=== PATIENT | male | born 1945 | race African-American/Black ===

== ENCOUNTER → 2016-05-08 | Outpatient (CLI) | payer OTHER, MEDICARE ==
[~2016-05-08] VITALS: Ht 180.3 cm; Wt 96.6 kg
[~2016-05-08] MED LIST: AMARYL2 MG PO; ASPIR 8181 MG PO; CLONIDINE0.1 PO; COD LIVER OIL1 EAC4 PO; COQ-10100 MG PO; HYDROCODONE-AP1 EAC6 PO; JANUVIA100 MG PO; METFORMIN HCL500 MG PO; METOPROLOL SUCC50 MG PO; MOBIC7.5 MG PO; QUINAPRIL-HCTZ1 EAC2 PO; ZOCOR40 MG PO
--- NOTE | ~2016-05-08 | HPC ---
[facility] [place] [address] PAIN MANAGEMENT CONSULTATION Name: LUC TRUJILLO Room #: REG Emily Homero.#: [id number] Admission: 05/08/16 Attend Phys: Kalpesh Dickey MD Discharge: Date of : 41 Report #: [id number] THIS REPORT FOR: //name// CC: Kalpesh Mary MD PRIMARY CARE PHYSICIAN: Ozzie Mary M.D. CHIEF COMPLAINT: Right hip pain down into the leg with weakness, numbness and tingling. HISTORY OF PRESENT ILLNESS: The patient is a 70-year-old gentleman who has been referred to the pain clinic for evaluation of pain and discomfort, which has been radiating down his right leg with numbness, tingling and weakness. He states the pain has been problematic for about the last 3 days. He denies any similar pain in the past. He denies any trauma. He denies any bowel or bladder dysfunction. He describes the pain as a 7/10. He notes that pain is worse when he is sitting, standing, walking or doing things, which involve bending and involvement of his low back area. He has tried all nonsteroidal anti-inflammatory medications with no significant benefit. ALLERGIES: No known drug allergies. MEDICATIONS: Januvia 100 mg daily, quinapril/hydrochlorothiazide 50 mg, metoprolol 50 mg b.i.d., clonidine 0.1 mg b.i.d., Zocor 40 mg, Amaryl 2 mg daily, metformin 500 mg b.i.d., cod liver oil, COQ10 100 mg, aspirin 81 mg. PAST MEDICAL HISTORY: Diabetes, hypertension. PAST SURGICAL HISTORY: None. SOCIAL HISTORY: He is retired, has not worked for the last 2 years. About 2 drinks per week. REVIEW OF SYSTEMS: Questionnaire in the chart indicates good health, diabetes; otherwise unremarkable. LABORATORY DATA: No laboratory values available at the time of our interview. PHYSICAL EXAMINATION: Blood pressure 161/109, pulse 83, respiratory rate 20, room air saturation 100%. Height 5 feet 11 inches, weight 96 kilos. BMI 29, patient has pain and discomfort in the low back area. Has possible right straight leg raise. The patient sits leaning to the left side with his right leg extended. He continues to switch and change positions numerous times throughout the interview. He complains of pain and discomfort radiating down the right buttocks, posterior thigh and down into the calf. He notes numbness, [facility] [address] [place] [address] PAIN MANAGEMENT CONSULTATION Name: LUC TRUJILLO Room #: REG [facility]#: [id number] Admission: 05/08/16 Attend Phys: Kalpesh Dickey MD Discharge: Date of : 41 Report #: [id number] weakness, tenderness and walks with an antalgic gait. IMPRESSION: 1. Lumbar radiculopathy with numbness, weakness tenderness in the L5-S1 nerve root distribution. 2. Essential hypertension. 3. Diabetes. RECOMMENDATIONS: We discussed treatment options with the patient. Risks and benefits of an epidural steroid injection were explained. A model was used to show the patient the area of pathology. Risks and benefits of an epidural steroid injection were discussed. Possible complications were again reviewed. The patient elects to proceed. PROCEDURE NOTE: The patient was placed in the prone position. Fluoroscopy was used to identify the L5, S1 nerve area. This area had been sterilely prepped with Betadine and infiltrated with 0.25% bupivacaine. Total of 80 mg Depo-Medrol, 40 mg triamcinolone and 2 mL of 0.25% bupivacaine was injected. The patient tolerated the procedure well. A total of 8.1 seconds of fluoroscopy time was used. The patient's pain decreased from 7 to 2 at the time of discharge. He will follow up in the future as needed. A script for Mobic 7.5 mg 1 p.o. every day and hydrocodone 5/325 one p.o. q. 6 hours p.r.n. pain has been dispensed. The patient will call us if he has any problem with his medications. We would like to thank you for letting us participate in his care. We hope he continues to improve. <ELECTRONICALLY SIGNED> By: Kalpesh Dickey MD 05/11/16 0821 [id number] 11 Kalpesh Dickey MD /monica
[2016-05-08 11:34] VITALS: BP 161/109
== END ==
LOC: PAIN 10:44
DX: M54.16 Radiculopathy, lumbar region (principal); I10 Essential (primary) hypertension; E11.9 Type 2 diabetes mellitus without complications

== ENCOUNTER → 2016-05-22 | Outpatient (CLI) | payer OTHER, MEDICARE ==
[~2016-05-22] VITALS: Ht 180.3 cm; Wt 95.4 kg
--- NOTE | ~2016-05-22 | HPC ---
[facility] [address] [address] PAIN MANAGEMENT CONSULTATION Name: LUC TRUJILLO Room #: REG Emily Brendon#: [id number] Admission: 05/22/16 Attend Phys: Kalpesh Dickey MD Discharge: Date of : 41 Report #: [id number] THIS REPORT FOR: //name// CC: Kalpesh Mary MD DATE OF SERVICE: 05/22/2016 FOLLOWUP COMPLAINT: Here for followup after the injection. FOLLOWUP HISTORY: The patient is a very pleasant 70-year-old who has been seen in the pain clinic because of lumbar radiculopathy. He was experiencing pain, which he rated as a 7/10 at the last visit. He was experiencing some pain down into his right leg with numbness, weakness, and tingling. He underwent the epidural steroid injection. He noticed that his pain has improved. He rates it as a 5/10 today. Overall, it is much better. He feels about 80% better than it was. At this juncture, he feels that it is "good enough." He will continue with a conservative approach. He will consider return in the future if his pain is worse, but declines an injection today. PHYSICAL EXAMINATION: Blood pressure is 157/95, pulse 61, respiratory rate 20, room air saturations 100. The patient rates his pain as a 5/10. Pain has decreased, radiating down into his right buttock and left calf. He is able to ambulate a whole lot better. He has had no problem with bowel or bladder dysfunction. IMPRESSION: 1. Improved lumbar radicular pain. He has had no problem with Meloxicam 7.5 mg. We will continue with this and give him 2 more additional scripts. He will stop this medication if he notes any GI pain or discomfort. He will continue with hydrocodone 5/325 one p.o. p.r.n. as needed. He will call us if he has any problems or escalation of his pain and return to the pain clinic for an additional injection if needed. 2. Lumbar radiculopathy with improvement in numbness, improvement in weakness in the L5-S1 distribution on the right leg. 3. Essential hypertension. 4. Diabetes. The patient has had no significant changes in his blood sugars after the injections. RECOMMENDATION: The patient will return to the pain clinic as [place] [address] PAIN MANAGEMENT CONSULTATION Name: LUC TRUJILLO Room #: REG EMILE LaMichaelAshelyMichael#: [id number] Admission: 05/22/16 Attend Phys: Kalpesh Dickey MD Discharge: Date of : 41 Report #: [id number] We would like to thank you for letting us participate in his care. We hope he continues to improve. <ELECTRONICALLY SIGNED> By: Kalpesh Dickey MD 06/12/16 1018 [id number] 1322 MD madiha Conroy
[2016-05-22 08:36] VITALS: BP 157/95
== END | disposition home or self-care (01) ==
LOC: PAIN 07:03
DX: M54.16 Radiculopathy, lumbar region (principal); I10 Essential (primary) hypertension; E11.9 Type 2 diabetes mellitus without complications